=== PATIENT | male | born 1935 | race Caucasian/White ===

== ENCOUNTER 2017-10-17 11:30 | Inpatient (IN) | payer OTHER ==
[~2017-10-17] VITALS: Ht 162.6 cm; Wt 74.8 kg
[2017-10-17] MEDS ORDERED: AMILODIPINE (14:26)
[2017-10-17] MEDS ORDERED: METFORMIN HCL500 MG PO (14:26)
[2017-10-17] MEDS ORDERED: CASODEX50 MG PO (14:27)
[2017-10-28] MEDS ORDERED: OXYC1TAB9 PO (13:41)
== END 2017-10-28 16:49 | disposition home or self-care (01) | DRG 330 ==
LOC: ADM 11:30 → SURG 10-24 08:20 → O/R 10-24 08:20 → CIR.AMB 10-24 11:30 → O/R 10-24 11:30 → EDSTATUS 10-24 11:30 → SURG 10-24 20:17
PROVIDERS: Surgery
PROC: 0D1N4Z4 Bypass Sigmoid Colon to Cutaneous, Percutaneous Endoscopic Approach (ICD-10-PCS; principal; 2017-10-24 11:00)
DX: C20 Malignant neoplasm of rectum (principal); N13.1 Hydronephrosis with ureteral stricture, not elsewhere classified; R59.0 Localized enlarged lymph nodes; R33.8 Other retention of urine

== ENCOUNTER 2017-10-21 16:07 | Outpatient (CLI) | payer OTHER ==
[~2017-10-21 16:07] MED LIST: AMILODIPINE; CASODEX50 MG PO; METFORMIN HCL500 MG PO
== END 2017-10-21 16:12 | disposition home or self-care (01) ==
LOC: LAB 16:07
DX: D68.0 Von Willebrand disease (principal)